=== PATIENT | female | born 1990 | race Two or more races ===

== ENCOUNTER 2017-11-26 19:07 | Emergency (ER) | payer MEDICAID ==
[~2017-11-26] VITALS: Ht 157.5 cm; Wt 113.4 kg
[2017-11-26 19:21] VITALS: BP 130/88
== END 2017-11-26 21:00 | disposition left against medical advice (07) ==
LOC: EDBD 19:07 → ER 19:09
DX: M79.605 Pain in left leg (principal); Z53.21 Procedure and treatment not carried out due to patient leaving prior to being seen by health care provider; W18.39XA Other fall on same level, initial encounter; Y93.89 Activity, other specified; Y92.89 Other specified places as the place of occurrence of the external cause; Y99.8 Other external cause status